=== PATIENT | female | born 2000 | race African-American/Black ===

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

== ENCOUNTER 2018-01-20 17:58 | Emergency (ER) | payer SELFPAY ==
--- NOTE | 2018-01-20 19:55 | RAD ---
FOUR VIEWS LEFT ELBOW 01/20/18 COMPARISON: None. HISTORY: Left elbow pain for two days. FINDINGS: The lateral examination demonstrates no discrete elbow joint effusion. No fracture or dislocation. If symptoms persists, followup in 7-10 days suggested. IMPRESSION: No acute findings. POS: [facility]
== END 2018-01-20 19:04 | disposition home or self-care (01) ==
LOC: ERS 17:58
DX: M25.522 Pain in left elbow (principal)

== ENCOUNTER 2018-12-30 23:12 | Emergency (ER) | payer BC, SELFPAY ==
[2018-12-30] MEDS ORDERED: diphenhydrAMINE 50 MG/ML VIAL ONE (23:39)
[2018-12-30] MEDS ORDERED: Ketorolac Tromethamine 30 MG/ML VIAL ONE (23:39)
[2018-12-30] MEDS ORDERED: Metoclopramide HCl 10 MG/2 ML VIAL ONE (23:39)
[2018-12-30] MEDS ORDERED: Ondansetron PF 4 MG/2 ML Vial ONE (23:43)
--- NOTE | 2018-12-31 08:02 | CT ---
PRELIMINARY REPORT/[facility]/EMERGENCY AFTER HOURS PROCEDURE: PROCEDURE INFORMATION: Exam: CT Head Without Contrast Exam date and time: 12/31/2018 12:17 AM Clinical history: 18 years old, female; Pain; Patient HX: Er 1. M74 with pmh of demensia presented to the ED with a C/O headache. PT denies fall. PT was seen here in the morning for seizure. PT was brou ght to the ED due to seizure witnessed by family. TECHNIQUE: Imaging protocol: Computed tomography of the head without contrast. COMPARISON: No relevant prior studies available. FINDINGS: Brain: No hemorrhage. Unremarkable white matter. No mass effect. Ventricles: No ventriculomegaly. Bones/joints: Unremarkable. No acute fracture. Sinuses: Visualized sinuses are unremarkable. No fluid levels. Mastoid air cells: Visualized mastoid air cells are well aerated. Soft tissues: Unremarkable. IMPRESSION: No acute intracranial abnormality. Thank you for allowing us to participate in the care of your patient. Dictated and Authenticated by: Latoya Leija MD 12/31/2018 12:38 AM Central Time ([place] & [place]) FINAL REPORT HEAD CT WITHOUT CONTRAST: HISTORY: Headache. COMPARISON: None. FINDINGS: No acute intracranial process. No parenchymal hemorrhage or extra-axial hematoma. No midline shift. IMPRESSION: This report is in agreement with the preliminary report by R[facility]. No acute intracranial process. POS: [facility]
== END 2018-12-31 01:08 | disposition home or self-care (01) ==
LOC: ERS 23:12
DX: R51 Headache (principal); R11.2 Nausea with vomiting, unspecified
CPT/HCPCS: 70450; 96361; 96365; 96375; J1200; J1885; J2405; J2765

== ENCOUNTER 2022-01-15 17:20 | Emergency (ER) | payer BC, SELFPAY ==
[2022-01-15] MEDS ORDERED: Acetaminophen 500 MG TAB ONE (17:41)
== END 2022-01-15 18:42 | disposition home or self-care (01) ==
LOC: ERS 17:20
DX: R07.89 Other chest pain (principal); F17.290 Nicotine dependence, other tobacco product, uncomplicated
CPT/HCPCS: 71045; 93005

== ENCOUNTER 2022-01-28 13:37 | Emergency (ER) | payer SELFPAY | END 2022-01-28 14:55 | disposition home or self-care (01) | LOC: ERS 13:37 | DX: J11.1 Influenza due to unidentified influenza virus with other respiratory manifestations (principal); F17.290 Nicotine dependence, other tobacco product, uncomplicated | CPT/HCPCS: 99282 ==

== ENCOUNTER 2023-12-25 13:16 | Emergency (ER) | payer SELFPAY ==
[2023-12-25] MEDS ORDERED: Dexamethasone 10 MG/ML VIAL ONE (13:24)
[2023-12-25] MEDS ORDERED: Bicillin LA 1.2 MILLION UNITS/2 ML SYRINGE ONE (14:43)
== END 2023-12-25 15:08 | disposition home or self-care (01) ==
LOC: ERS 13:16
DX: J02.0 Streptococcal pharyngitis (principal); F17.290 Nicotine dependence, other tobacco product, uncomplicated
CPT/HCPCS: 87430; 96372; 99283; J0561; J1100